=== PATIENT | female | born 1975 | race Caucasian/White ===

== ENCOUNTER 2020-08-18 19:14 | Emergency (ER) | payer OTHER, BC ==
[2020-08-18] MEDS ORDERED: Sodium Chloride 0.9% 10 ML Syringe FLUSH PRN (19:22)
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
[2020-08-18] MEDS ORDERED: Sodium Chloride 0.9% 1,000 ML IV SCH (19:30)
[2020-08-18] MEDS ORDERED: Potassium Chloride 20 MEQ Tab.ER PO ONE (20:01)
== END 2020-08-18 20:40 | disposition home or self-care (01) ==
LOC: FB.ED 19:14
DX: T67.5XXA Heat exhaustion, unspecified, initial encounter (principal); F41.1 Generalized anxiety disorder; Z79.899 Other long term (current) drug therapy; X30.XXXA Exposure to excessive natural heat, initial encounter; Y93.89 Activity, other specified; Y92.89 Other specified places as the place of occurrence of the external cause
CPT/HCPCS: 36415; 80053; 84484; 85025; 93005; 99283; 99285; A9270; J7030

== ENCOUNTER 2024-08-15 21:20 | Emergency (ER) | payer BC ==
[2024-08-15] MEDS ORDERED: Sodium Chloride 0.9% 10 ML Syringe FLUSH PRN (21:22)
[2024-08-15] MEDS: Potassium Chloride 20 MEQ in Premix Bag 1 BAG IV ONE (21:48)
[2024-08-15] MEDS: Potassium Chloride 20 MEQ Tab.ER PO ONE (21:49)
[2024-08-16 00:32] LABS: BLOOD UREA NITROGEN,BUN 5 mg/dL (7-18); BUN/CREATININE RATIO 5.6 (9-20); CALCIUM 7.6 mg/dL (8.6-10.2); CARBON DIOXIDE,CO2 34 mmol/L (21-32); CHLORIDE,CL 103 mmol/L (100-110); CREATININE 0.9 mg/dL (0.55-1.02); ESTIMATED GFR 79 mL/min (>60); GLUCOSE RANDOM 90 mg/dL (80-116); SODIUM,NA 142 mmol/L (135-145)
[2024-08-16 00:35] LABS: POTASSIUM,K 2.4 mmol/L (3.5-5.3)
[2024-08-16] MEDS: Potassium Chloride 20 MEQ Tab.ER PO ONE (00:59)
== END 2024-08-16 01:16 | disposition home or self-care (01) ==
LOC: FB.ED 21:20
DX: E87.6 Hypokalemia (principal); J18.9 Pneumonia, unspecified organism
CPT/HCPCS: 36415; 71045; 80048; 96365; 96366; 99284; 99285; A9270; J3480

== ENCOUNTER 2024-09-14 16:05 | Emergency (ER) | payer SELFPAY ==
[2024-09-14] MEDS: Acetaminophen 500 MG Tab PO ONE (17:23)
[2024-09-14] MEDS: tiZANidine 4 MG Tab PO STA (17:23)
[2024-09-14] MEDS: Ketorolac 30 MG/ML SDV IM ONE (19:52)
== END 2024-09-14 20:15 | disposition home or self-care (01) ==
LOC: FB.ED 16:05
DX: S06.0X0A Concussion without loss of consciousness, initial encounter (principal); S16.1XXA Strain of muscle, fascia and tendon at neck level, initial encounter; S00.83XA Contusion of other part of head, initial encounter; Z79.899 Other long term (current) drug therapy; Z88.1 Allergy status to other antibiotic agents; Z91.030 Bee allergy status; Z88.8 Allergy status to other drugs, medicaments and biological substances; W19.XXXA Unspecified fall, initial encounter
CPT/HCPCS: 70450; 70486; 72125; 96372; 99283; A9270; J1885; 99284